=== PATIENT | male | born 1970 | race Caucasian/White ===

== ENCOUNTER 2019-03-13 09:52 | Emergency (ER) | payer MEDICAID, OTHER ==
[~2019-03-13] VITALS: Ht 180.3 cm; Wt 108.6 kg
[2019-03-13 09:59] VITALS: BP 139/66
[2019-03-13] MEDS ORDERED: SULF1TAB49 PO (10:53)
[2019-03-13] MEDS ORDERED: CEPH-572 PO (10:53)
[2019-03-13] MEDS ORDERED: acetaminophen 325mg tablet PO ONE (11:00)
== END 2019-03-13 11:19 | disposition home or self-care (01) ==
LOC: ER 09:53
DX: L02.31 Cutaneous abscess of buttock (principal)
CPT/HCPCS: 99283

== ENCOUNTER 2019-06-25 18:57 | Emergency (ER) | payer MEDICAID, OTHER ==
[~2019-06-25] VITALS: Ht 180.3 cm; Wt 95.8 kg
[2019-06-25 20:15] VITALS: BP 146/81
[2019-06-25] MEDS ORDERED: ketorolac tromethamine 15mg/ml inj. IM ONE (20:45)
[2019-06-25] MEDS ORDERED: IBUP-1986 PO (20:47)
[2019-06-25] MEDS ORDERED: ALBU8HFA PO (20:47)
== END 2019-06-25 20:57 | disposition home or self-care (01) ==
LOC: ER 18:58
DX: I83.92 Asymptomatic varicose veins of left lower extremity (principal); M25.562 Pain in left knee; J45.909 Unspecified asthma, uncomplicated
CPT/HCPCS: 96372; 99283; J1885

== ENCOUNTER 2023-06-08 11:14 | Emergency (ER) | payer MEDICAID ==
[~2023-06-08] VITALS: Ht 180.3 cm; Wt 109.6 kg
[2023-06-08 11:14] VITALS: TEMP 97.8
[~2023-06-08 11:14] MED LIST: IBUP-1986 PO
[2023-06-08 11:38] LABS: BILIRUBIN,URINE SMALL (Neg); CLARITY,URINE CLOUDY (Clear); COLOR,URINE YELLOW (Yellow); GLUCOSE, URINE NEGATIVE (Neg); KETONES,URINE NEGATIVE (Neg); LEUKOCYTE ESTERASE ,URINE NEGATIVE (Neg); NITRITES, URINE NEGATIVE (Neg); OCCULT BLOOD,URINE NEGATIVE (Neg); PH,URINE 5.5 (4.8-8.0); PROTEIN,URINE 30 mg/dl (Neg); UROBILINOGEN,URINE 0.2 E.U/dL (0.2-1.0)
[2023-06-08 11:39] LABS: UA COLLECTION TYPE CLN CATCH MIDSTREAM
[2023-06-08 11:45] LABS: HYALINE CASTS >30 /LPF (NEGATIVE)
[2023-06-08 11:46] LABS: BACTERIA,URINE 2+ /HPF (Neg); SQUAMOUS EPITHELIAL CELL,UR FEW /LPF (FEW); URIC ACID CRYSTALS 4+ /HPF (NEGATIVE)
[2023-06-08 11:47] LABS: RBC,URINE 0-2 /HPF (0-2); WBC,URINE 0-4 /HPF (0-4)
[2023-06-08] MEDS: ondansetron/PF 4mg/2ml inj IV ONE (12:02)
[2023-06-08] MEDS: normal saline 1000ML IV soln IVB ONE (12:02)
[2023-06-08] MEDS: LIDOcaine Viscous 15ml cup MM PRN (12:08)
[2023-06-08] MEDS: mag hydrox/Alum hydrox/simeth 30ml oral suspension PO ONE (12:08)
[2023-06-08] MEDS: morphine 2 MG/ML inj. syringe IV ONE (12:08)
[2023-06-08 12:15] LABS: BASOPHILS % (AUTO) 0.3 % (0-1); EOSINOPHILS # (AUTO) 0.1 X10'3 (0-0.9); EOSINOPHILS % (AUTO) 0.6 % (0-6); HEMATOCRIT 52.9 % (42.0-52.0); HEMOGLOBIN 17.6 g/dl (14.0-17.9); LYMPHOCYTES # (AUTO) 1.2 X10'3 (1.1-4.8); LYMPHOCYTES % (AUTO) 9.4 % (21-51); MEAN CORPUSCULAR HEMOGLOBIN 30.3 PG (27.0-31.0); MEAN CORPUSCULAR HGB CONC 33.2 g/dL (33.0-36.5); MEAN CORPUSCULAR VOLUME 91.2 FL (78-98); MONOCYTES # (AUTO) 0.6 X10'3 (0-0.9); MONOCYTES % (AUTO) 4.6 % (2-12); NEUTROPHILS # (AUTO) 11.1 X10'3 (1.8-7.7); NEUTROPHILS % (AUTO) 85.1 % (42-75); PLATELET COUNT 261 X10'3 (140-440); RED CELL DISTRIBUTION WIDTH 14.1 % (11.5-14.5)
[2023-06-08 12:31] LABS: ALANINE AMINOTRANSFERASE 18 U/L (12-78); ALBUMIN 4.4 G/DL (3.4-5.0); ALBUMIN/GLOBULIN RATIO 0.9 (1.1-1.5); ALKALINE PHOSPHATASE 99 IU/L (46-116); ANION GAP 13 (8-16); ASPARTATE AMINO TRANSFERASE 16 U/L (10-37); BILIRUBIN,TOTAL 0.7 MG/DL (0.1-1.0); BLOOD UREA NITROGEN 26 MG/DL (7-18); BUN/CREATININE RATIO 16.1 (10.0-20.0); CALCIUM 9.6 MG/DL (8.5-10.1); CHLORIDE 104 MMOL/L (99-107); CREATININE 1.61 MG/DL (0.60-1.10); GLUCOSE 111 MG/DL (70-104); LIPASE 19 U/L (16-77); POTASSIUM 4.7 MMOL/L (3.5-5.1); SODIUM 142 MMOL/L (135-145); TOTAL CARBON DIOXIDE 24.7 MMOL/L (24-32); TOTAL PROTEIN 9.3 G/DL (6.4-8.2); eCRCL 58 ML/MIN; eGFR 46 ML/MIN
[2023-06-08] MEDS: normal saline 1000ml 1,000 ML IV ONE (13:01)
[2023-06-08] MEDS ORDERED: ONDA8TAB13 PO (13:37)
[2023-06-08] MEDS: morphine 4 MG/ML inj SYRINge IV ONE (13:43)
[2023-06-08] MEDS ORDERED: LIDOcaine Viscous 15ml cup MM PRN (14:20)
[2023-06-08 14:56] VITALS: BP 137/97; PULSE 78; RESP 16; O2SAT 98
== END 2023-06-08 15:14 | disposition home or self-care (01) ==
LOC: ER 11:14
DX: K29.00 Acute gastritis without bleeding (principal); F41.9 Anxiety disorder, unspecified; Z79.899 Other long term (current) drug therapy
CPT/HCPCS: 36415; 80053; 81001; 83690; 85025; 96361; 96374; 96375; 96376; 99285; J2270; J2405; J7030